=== PATIENT | female | born 1945 | race Caucasian/White ===

== ENCOUNTER → 2016-08-11 | Outpatient (CLI) | payer MEDICARE, OTHER | LOC: GMAL 10:19 | PROVIDERS: ATTEND Family Medicine | DX: D51.3 Other dietary vitamin B12 deficiency anemia (principal); R53.83 Other fatigue; E55.9 Vitamin D deficiency, unspecified; Z79.899 Other long term (current) drug therapy ==

== ENCOUNTER → 2016-12-20 | Outpatient (CLI) | payer MEDICARE, OTHER ==
--- NOTE | 2016-12-22 14:38 | MAM ---
EXAM DESCRIPTION: 3D Screening BILATERAL CLINICAL HISTORY: 71 yearsFemaleSCREENING. No complaints. Maternal grandmother with breast cancer. Postmenopausal. Currently on HRT.. COMPARISON: 2-D digital screening bilateral study is 03/30/2015 and 12/04/2013.. No prior reports available. TECHNIQUE: Bilateral CC and MLO projection full-field images, 3-D tomosynthesis digital mammographic technique. Also bilateral synthesized CC/ MLO full-field images. CAD not utilized. FINDINGS: The breast parenchymal density pattern is: Scattered areas of fibroglandular density. No skin thickening or nipple retraction bilateral solitary microcalcifications. Bilateral vascular calcifications. Intramammary lymph nodes on the right. No focal, stellate mass or density, focal asymmetry , and no suspicious microcalcifications bilaterally. Stable mammograms compared to prior study, taking into account differences in mammographic technique IMPRESSION: BI-RADS CATEGORY: 2 - BENIGN FINDINGS. FOLLOW UP: Routine digital bilateral screening, one year interval from November 2016. Written communication explaining the findings and follow-up, will be mailed to the patient and referring health care provider. According to the [employer], yearly mammograms are recommended starting at age 40 and continuing as long as a woman is in good health. Any breast change noted on a breast self-exam should be reported promptly to the patient's healthcare provider. Breast MRI is recommended for women with an approximately 20-25% or greater lifetime risk of breast cancer, including women with a strong family history of breast or ovarian cancer and women who have been treated for Hodgkin's disease. A negative mammographic report should not delay tissue diagnosis in patients with significant clinical history or physical findings. Extremely dense breast tissue limits the sensitivity of digital mammography. Electronically signed by: Tobias Morrison MD 12/22/2016 2:36 PM CDT
== END ==
LOC: MAMMO 13:58
PROVIDERS: ATTEND Family Medicine
DX: Z12.31 Encounter for screening mammogram for malignant neoplasm of breast (principal)
CPT/HCPCS: 77063; G0202

== ENCOUNTER → 2017-01-16 | Outpatient (CLI) | payer MEDICARE, OTHER | END | disposition home or self-care (01) | LOC: GMAL 14:44 | PROVIDERS: ATTEND Family Medicine | DX: I50.9 Heart failure, unspecified (principal) ==

== ENCOUNTER → 2017-05-09 | Outpatient (CLI) | payer MEDICARE, OTHER | END | disposition home or self-care (01) | LOC: GMAL 10:15 | PROVIDERS: ATTEND Family Medicine | DX: D51.3 Other dietary vitamin B12 deficiency anemia (principal); E55.9 Vitamin D deficiency, unspecified ==

== ENCOUNTER → 2017-05-15 | Outpatient (CLI) | payer MEDICARE, OTHER | END | disposition home or self-care (01) | LOC: GMAL 14:46 | PROVIDERS: ATTEND Family Medicine | DX: N39.0 Urinary tract infection, site not specified (principal) ==

== ENCOUNTER → 2017-08-15 | Outpatient (CLI) | payer MEDICARE, OTHER ==
--- NOTE | 2017-08-15 16:47 | MRI ---
EXAM DESCRIPTION: Brain w/o Contrast: MRI. CLINICAL HISTORY: MILD COGNITIVE IMPAIRMENT COMPARISON: None. TECHNIQUE: Multiplanar, high-field MRI unit, multiple diffusion sequences, multiple conventional sequences without contrast. FINDINGS: Small bilateral multifocal hyperintense FLAIR and T2-weighted signal in the periventricular white matter. No hemorrhage or diffusion restriction. . Similar signal bilaterally in the basal ganglia. Bilateral basal ganglier cysts or prominent perivascular spaces more on the left. No diffusion restriction. No hemorrhage, no cerebral edema, no mass-effect. Similar signal signal in the amilcar as was seen in the cerebral periventricular white matter. Questionable area of scarring in the lower right amilcar anterior to the right fourth ventricle. No hemorrhage or diffusion restriction. Normal signal in the cerebellar hemispheres. No hemorrhage, no cerebral edema, no mass-effect. Concordance of the diffusion and non-diffusion sequences with no diffusion restriction. Cortical sulci, ventricles, and other CSF spaces, and the subdural spaces are normally configured for patients age. No effacement or displacement. No midline shift. No extra-axial hemorrhage. Normal flow signal void in the major vessels of the [place], and the venous sinuses. IACs are symmetric bilaterally. Normal signal in the bilateral mastoid air cells. No mass effect in the bilateral cerebellopontine angles. Pituitary gland occupies most of the sella. Base of the cerebellar tonsils is above the foramen magnum. Minimal chronic findings in the bilateral paranasal sinuses. The bony calvarium is intact. IMPRESSION: 1. Periventricular white matter signal changes most likely related to cerebral microvascular disease. No hemorrhage mass effect or cerebral edema. No diffusion restriction. Similar findings in the amilcar with possible scar or old vascular lesion in the inferior right amilcar abutting the fourth ventricle. No diffusion restriction.. No extra-axial hemorrhage or abnormal fluid. 2. Minimal chronic paranasal sinusitis. Electronically signed by: Tobias Morrison MD 08/15/2017 4:46 PM CDT
== END ==
LOC: MRI 11:08
PROVIDERS: ATTEND Specialist
DX: G31.84 Mild cognitive impairment of uncertain or unknown etiology (principal); J32.9 Chronic sinusitis, unspecified

== ENCOUNTER → 2018-01-09 | Outpatient (CLI) | payer MEDICARE, OTHER | LOC: GMAL 11:44 | PROVIDERS: ATTEND Family Medicine | DX: R53.83 Other fatigue (principal) ==

== ENCOUNTER → 2018-01-15 | Outpatient (CLI) | payer MEDICARE, OTHER | LOC: GMAL 14:54 | PROVIDERS: ATTEND Family Medicine | DX: N30.00 Acute cystitis without hematuria (principal) ==

== ENCOUNTER → 2018-05-07 | Outpatient (CLI) | payer MEDICARE, OTHER ==
--- NOTE | 2018-05-08 09:00 | MAM ---
EXAM DESCRIPTION: 3D Screening BILATERAL : Digital Mammography. CLINICAL HISTORY: 73 years Female SCREEN . No complaints or personal history of breast cancer. Remote family history of breast cancer. Childbirth. Postmenopausal 25 years. Currently on HRT. Lifetime risk of developing breast cancer (Tyrer-Cuzick model)(%): 2.8. COMPARISON: Bilateral screening digital breast tomosynthesis 12/20/2016. TECHNIQUE: Bilateral CC and MLO projection full-field images, digital tomosynthesis mammographic technique. Bilateral digital 2-D full-field MLO images. CAD not available for tomosynthesis or 2-D images. FINDINGS: The breast parenchymal density pattern is: Heterogeneously dense breast tissue, which may obscure small masses. No skin thickening or nipple retraction. Bilateral vascular calcifications and solitary microcalcifications. No new focal, stellate mass or density, focal asymmetry , and no suspicious microcalcifications bilaterally. Stable mammograms compared to prior study. IMPRESSION: Benign exam. BIRAD CATEGORY: 2 BENIGN FINDINGS. RECOMMENDATIONS: FOLLOW UP: Routine digital bilateral mammographic screening, one year interval from April 2018. Written communication explaining the IMPRESSION and follow-up, will be mailed to the patient and referring health care provider. According to the [employer], yearly mammograms are recommended starting at age 40 and continuing as long as a woman is in good health. Any breast change noted on a breast self-exam should be reported promptly to the patient's healthcare provider. Breast MRI is recommended for women with an approximately 20-25% or greater lifetime risk of breast cancer, including women with a strong family history of breast or ovarian cancer and women who have been treated for Hodgkin's disease. A negative mammographic report should not delay tissue diagnosis in patients with significant clinical history or physical findings. Extremely dense breast tissue limits the sensitivity of digital mammography. Electronically signed by: Tobias Morrison MD 05/08/2018 8:59 AM [facility]
== END ==
LOC: RAD 11:43
PROVIDERS: ATTEND Family Medicine
DX: Z12.31 Encounter for screening mammogram for malignant neoplasm of breast (principal)

== ENCOUNTER → 2018-08-28 | Outpatient (CLI) | payer MEDICARE, OTHER | LOC: GMAL 12:44 | PROVIDERS: ATTEND Family Medicine | DX: D51.3 Other dietary vitamin B12 deficiency anemia (principal); E55.9 Vitamin D deficiency, unspecified; E78.2 Mixed hyperlipidemia; I10 Essential (primary) hypertension; Z79.4 Long term (current) use of insulin ==

== ENCOUNTER → 2018-10-01 | Outpatient (CLI) | payer MEDICARE, OTHER ==
--- NOTE | 2018-10-02 14:01 | MAM ---
EXAM DESCRIPTION: 3D Diagnostic, Left (accession [id number]), Breast,Left (accession [id number]): Ultrasound CLINICAL HISTORY: 73 yearsFemaleABN MAMMO. Ulcer and erythema on the inferior left breast. COMPARISON: Bilateral screening digital breast tomosynthesis 05/07/2018. TECHNIQUE: Left LM, CC, and MLO projection full-field images, digital mammographic tomosynthesis technique. Left 2-D digital full-field MLO images. CAD not available . Transcutaneous scanning of the left breast utilizing cassidy-scale and Doppler modes. Scanning performed by the pinking machine operator and Dr. Morrison. FINDINGS: Left breast parenchymal density pattern is: Scattered areas of fibroglandular density. No skin thickening or nipple retraction scattered solitary microcalcifications. Vascular calcifications. At the 7:00 position of the left breast approximately 7 cm from the nipple, is an oval low-density region with surrounding increased density, consistent with ulcer and cellulitis. No abnormal calcifications. No soft tissue mass. No new focal, stellate mass or density, focal asymmetry , and no suspicious microcalcifications left breast Ultrasound: Scanning of the inferior left breast middle third, approximately 6 cm from the nipple, around the site of skin ulcer. The tissue abutting the scan is hypoechoic and slightly vascular measuring 12 x 5 mm. Not associated with a soft tissue mass or cyst. No large calcifications. IMPRESSION: Benign exam. Cellulitis with skin ulcer left breast. No mass. BIRAD CATEGORY: 2 BENIGN FINDINGS. RECOMMENDATIONS: FOLLOW UP: Return to routine digital bilateral mammographic screening, one year interval from April 2018. Written communication explaining the IMPRESSION and follow-up, will be mailed to the patient and referring health care provider. The FINDINGS and the FOLLOW-UP plan were reviewed in person with the patient after the examination. According to the [employer], yearly mammograms are recommended starting at age 40 and continuing as long as a woman is in good health. Any breast change noted on a breast self-exam should be reported promptly to the patient's healthcare provider. Breast MRI is recommended for women with an approximately 20-25% or greater lifetime risk of breast cancer, including women with a strong family history of breast or ovarian cancer and women who have been treated for Hodgkin's disease. A negative mammographic report should not delay tissue diagnosis in patients with significant clinical history or physical findings. Extremely dense breast tissue limits the sensitivity of digital mammography. Electronically signed by: Tobias Morrison MD 10/02/2018 1:59 PM CDT
== END ==
LOC: US 13:00
PROVIDERS: ATTEND Nurse Practitioner Family
DX: N61.1 Abscess of the breast and nipple (principal)
CPT/HCPCS: 76641; 77065; G0279

== ENCOUNTER → 2018-12-07 | Outpatient (CLI) | payer MEDICARE, OTHER ==
--- NOTE | 2018-12-07 15:24 | MRI ---
EXAM DESCRIPTION: Shoulder,Left CLINICAL HISTORY: 73 years, Female, Pain in left shoulder. COMPARISON: Chest radiograph 03/18/2014. TECHNIQUE: MRI of the left shoulder was performed with multiplanar multi sequence imaging without intravenous contrast. FINDINGS: Rotator tendons: Moderate rotator cuff tendinosis with thickening of the rotator cuff and intermediate signal which is most pronounced involving the supraspinatus and infraspinatus tendons. There is minimal articular surface fraying of the supraspinatus and infraspinatus tendon without full-thickness rotator cuff tear or tendon retraction. Rotator muscles: No rotator cuff muscle atrophy. Glenoid labrum: Diffuse circumferential degenerative tearing of the glenoid labrum. Acromion: The acromion morphology is type one. Bone and joints: Severe left glenohumeral joint osteoarthrosis with essential [id number] articulation and full-thickness glenohumeral joint articular surface cartilage loss. There is degenerative subchondral cystic changes at the humeral head and glenoid with mild flattening of the humeral head with bulky osteophyte formation. No focal bone marrow contusion or fracture. Mild left acromioclavicular joint osteoarthrosis with mild capsular hypertrophy. Lateral acromial downsloping. Biceps tendon: The biceps labral anchor appears intact. There is severe degeneration/tendinosis of the proximal biceps tendon with interstitial tearing at the level of the bicipital groove and severe thickening within the intra-articular segment. Mild proximal biceps tendon tenosynovitis. Soft tissues: No solid or cystic mass is seen. IMPRESSION: 1. Severe/end-stage left glenohumeral joint osteoarthrosis with full-thickness cartilage loss and circumferential glenoid labrum generative tearing. 2. Moderate rotator cuff tendinosis without full-thickness tear or retraction. 3. Lateral acromial downsloping with small lateral subacromial enthesophyte can be a cause for external impingement on the rotator cuff. Mild subacromial/subdeltoid bursitis. 4. Severe proximal long head biceps tendon degeneration with mild biceps tenosynovitis. Electronically signed by: Man Gonsales DO 12/07/2018 3:23 PM CDT
== END ==
LOC: MRI 13:52
PROVIDERS: ATTEND Family Medicine
DX: M19.012 Primary osteoarthritis, left shoulder (principal); M75.22 Bicipital tendinitis, left shoulder; M75.32 Calcific tendinitis of left shoulder

== ENCOUNTER → 2019-02-28 | Outpatient (CLI) | payer MEDICARE, OTHER ==
--- NOTE | 2019-02-28 11:27 | RAD ---
EXAM DESCRIPTION: Shoulder,Left 2 or More Views CLINICAL HISTORY: 73 years Female, SHOULDER PAIN COMPARISON: None available. FINDINGS: The visualized bones are well-mineralized.No acute fracture or dislocation. The soft tissues appear grossly unremarkable. Moderate to severe glenohumeral osteoarthritis. IMPRESSION: Moderate to severe glenohumeral osteoarthritis. Otherwise normal radiographs of the left shoulder. Electronically signed by: Lisbet Foote MD 02/28/2019 11:25 AM [facility]
== END ==
LOC: RAD 10:16
PROVIDERS: ATTEND Orthopaedic Surgery
DX: M19.012 Primary osteoarthritis, left shoulder (principal)

== ENCOUNTER → 2019-03-11 | Outpatient (CLI) | payer MEDICARE, OTHER ==
--- NOTE | 2019-03-11 10:20 | RAD ---
EXAM DESCRIPTION: Knee,Left Complete (accession [id number]), Knee,Right Complete (accession [id number]) CLINICAL HISTORY: 73 years Female, PAIN IN LEFT KNEE COMPARISON: None. Findings: 8total radiographs of both knees Left knee: Moderate medial compartment narrowing with weightbearing. Lateral tibial translation. Tricompartmental osteophytes. No significant joint effusion. Patellofemoral narrowing. No acute fracture or dislocation. Right knee: Mild medial compartment narrowing. Tricompartmental osteophytes. Patellofemoral narrowing. Lateral patellar subluxation. Shallow femoral trochlea. No acute fracture or dislocation. No significant joint effusion. IMPRESSION: Osteoarthritis of both knees. No evidence of acute process. Electronically signed by: Flakito Lucas MD 03/11/2019 10:19 AM [facility]
--- NOTE | 2019-03-11 10:20 | RAD ---
EXAM DESCRIPTION: Knee,Left Complete (accession [id number]), Knee,Right Complete (accession [id number]) CLINICAL HISTORY: 73 years Female, PAIN IN LEFT KNEE COMPARISON: None. Findings: 8total radiographs of both knees Left knee: Moderate medial compartment narrowing with weightbearing. Lateral tibial translation. Tricompartmental osteophytes. No significant joint effusion. Patellofemoral narrowing. No acute fracture or dislocation. Right knee: Mild medial compartment narrowing. Tricompartmental osteophytes. Patellofemoral narrowing. Lateral patellar subluxation. Shallow femoral trochlea. No acute fracture or dislocation. No significant joint effusion. IMPRESSION: Osteoarthritis of both knees. No evidence of acute process. Electronically signed by: Flakito Lucas MD 03/11/2019 10:19 AM [facility]
--- NOTE | 2019-03-11 10:20 | RAD ---
EXAM DESCRIPTION: Pelvis CLINICAL HISTORY: PAIN IN LEFT AND RIGHT HIP COMPARISON: None. IMPRESSION: Single AP supine view of the pelvis shows no acute fracture, focal bone destruction, or joint dislocation. Mild joint space narrowing with sclerotic changes to the superior lateral acetabulum are seen consistent with mild osteoarthritic changes. Electronically signed by: Berhane Marley MD 03/11/2019 10:19 AM [facility]
== END | disposition home or self-care (01) ==
LOC: RAD 08:57
PROVIDERS: ATTEND Orthopaedic Surgery
DX: M25.561 Pain in right knee (principal); M25.562 Pain in left knee; M25.551 Pain in right hip; M25.552 Pain in left hip

== ENCOUNTER → 2019-11-25 | Outpatient (CLI) | payer MEDICARE, OTHER | LOC: GMAL 14:42 | PROVIDERS: ATTEND Family Medicine | DX: R53.82 Chronic fatigue, unspecified (principal) ==

== ENCOUNTER → 2020-02-20 | Outpatient (CLI) | payer MEDICARE, OTHER | LOC: GMAL 14:27 | PROVIDERS: ATTEND Family Medicine | DX: R35.0 Frequency of micturition (principal) ==

== ENCOUNTER → 2020-06-16 | Outpatient (CLI) | payer MEDICARE, OTHER | LOC: GMAL 17:25 | PROVIDERS: ATTEND Family Medicine | DX: R53.83 Other fatigue (principal); I10 Essential (primary) hypertension; E10.40 Type 1 diabetes mellitus with diabetic neuropathy, unspecified ==

== ENCOUNTER 2020-06-20 18:47 | Emergency (ER) | payer MEDICARE, OTHER ==
--- NOTE | 2020-06-20 19:23 | ED.PDOC ---
History of Present Illness - General Chief Complaint: GI Problem Stated Complaint: nausea and vomiting Time Seen by Provider: 06/20/20 19:05 - History of Present Illness Initial Comments: PATIENT RECEIVED SECOND COVID VACCINE TODAY AND EXPERIENCED N/V TODAY. SHE HAD THE SAME SYMPTOMS FOLLOWING THE FIRST COVID VACCINE. PATIENT RECEIVED ZOFRAN AND PROMETHAZINE IN ROUTE BY EMS AND IS NOW ASYMPTOMATIC. Severity: mild Improving Factors: nothing Worsening Factors: nothing Associated Symptoms: denies symptoms Allergies/Adverse Reactions: Allergies Codeine Allergy (Verified 06/20/20 18:51) Home Medications: Ambulatory Orders Ondansetron Odt [Zofran ODT] 8 mg PO TID PRN 7 Days tab 06/20/20 Review of Systems - Review of Systems Constitutional: States: no symptoms reported EENTM: States: no symptoms reported Respiratory: States: no symptoms reported Cardiology: States: no symptoms reported Gastrointestinal/Abdominal: States: no symptoms reported Genitourinary: States: no symptoms reported Musculoskeletal: States: no symptoms reported Skin: States: no symptoms reported Neurological: States: no symptoms reported Past Medical History (General) - Patient Medical History Hx Stroke: No Hx of COPD: No Hx Cardiac Disorders: Yes - afib Hx Hypertension: Yes Hx Diabetes: Yes - insulin pump Surgical History: appendectomy, tonsillectomy, other - Social History Hx Tobacco Use: No Family Medical History - Family History Mother Family History: Unknown Physical Exam - Physical Exam General Appearance: Alert, Well Developed, Well Groomed, Well Hydrated, Well Nourished Neck: non-tender, full range of motion, supple, normal inspection Respiratory: chest non-tender, lungs clear, normal breath sounds, no respiratory distress, no accessory muscle use Gastrointestinal/Abdominal: normal bowel sounds, non tender, soft, no organomegaly Rectal Exam: normal exam, normal rectal tone Back Exam: normal inspection, no CVA tenderness, no vertebral tenderness Extremity: normal range of motion, non-tender, normal inspection, no pedal edema, no calf tenderness Neurologic: no motor/sensory deficits, alert, normal mood/affect, oriented x 3 Skin Exam: normal color, warm/dry Departure - Departure Clinical Impression: Vomiting Qualifiers: Vomiting type: unspecified Vomiting Intractability: unspecified Nausea presence: with nausea Qualified Code(s): R11.2 - Nausea with vomiting, unspecified Time of Disposition: 20:21 Disposition: Discharge to Home or Self Care Condition: Fair Departure Forms: ED Discharge - Pt. Copy, Patient Portal Self Enrollment Instructions: Nausea and Vomiting, Adult (DC) Referrals: Sanjay Perales III, MD [Primary Care Provider] - 1-2 Weeks Prescriptions: Ondansetron Odt [Zofran ODT] 8 mg PO TID PRN 7 Days tab PRN Reason: Nausea Home Medications: Ambulatory Orders Ondansetron Odt [Zofran ODT] 8 mg PO TID PRN 7 Days tab 06/20/20 Additional Instructions: RETURN IF FURTHER PROBLEMS./
[2020-06-20 20:43] VITALS: BP 136/59; TEMP 97.8; O2SAT 95
== END 2020-06-20 20:43 | disposition home or self-care (01) ==
LOC: ER 18:47
DX: R11.2 Nausea with vomiting, unspecified (principal); E11.9 Type 2 diabetes mellitus without complications; I48.91 Unspecified atrial fibrillation; I10 Essential (primary) hypertension; Z79.4 Long term (current) use of insulin; Z96.41 Presence of insulin pump (external) (internal); Z88.5 Allergy status to narcotic agent